=== PATIENT | male | born 1950 | race Two or more races ===

== ENCOUNTER 2021-04-26 22:25 | Emergency (ER) | payer BC, OTHER ==
[~2021-04-26] VITALS: Ht 182.9 cm; Wt 78.0 kg
[2021-04-27 01:40] VITALS: BP 123/75
== END 2021-04-27 02:19 | disposition home or self-care (01) ==
LOC: ER 22:25
DX: F10.129 Alcohol abuse with intoxication, unspecified (principal); Y90.9 Presence of alcohol in blood, level not specified; I10 Essential (primary) hypertension; G40.909 Epilepsy, unspecified, not intractable, without status epilepticus
CPT/HCPCS: 99283